=== PATIENT | male | born 1955 | race Caucasian/White ===

== ENCOUNTER 2020-06-17 15:38 | Emergency (ER) | payer BC, OTHER ==
[2020-06-17 22:16] LABS: Absolute Lymphocytes (CBC) 1.5 K/uL (0.7-4.9); Basophils % 0.5 % (0-1.3); Hematocrit 35.8 % (39.6-49.0); Lymphocytes % 16.7 % (15.3-44.8); MPV 9.6 fL (7.6-11.3); RBC Red Blood Cell Count 3.97 M/uL (4.33-5.43)
[2020-06-17 22:17] LABS: Protime INR 1.01
[2020-06-17] MEDS ORDERED: PANTOPRAZOLE 40 MG INJ ONE (22:22)
[2020-06-17] MEDS ORDERED: NA CHLORIDE 0.9% 250 ML ONE (22:22)
[2020-06-17] MEDS ORDERED: NA CHLORIDE 0.9% 1,000 ML ONE (22:22)
--- NOTE | 2020-06-17 22:29 | EDPHYS ---
Physician Documentation [facility] Name: Venkata Chan Age: 64 yrs Sex: Male : 1955 Arrival Date: 06/17/2020 Time: 15:41 Bed 23 Private MD: ED Physician Marcelino Bess HPI: 06/17 22:13 This 64 yrs old Male presents to ER via Ambulatory with complaints of gordo Black/Tarry Stools - Vomit. 22:13 The patient presents to the emergency department vomiting blood, a small amount, coffee gordo grounds in nature, with rectal bleeding, melena, with multiple such episodes. Onset: The symptoms/episode began/occurred 1 day(s) ago. Abdominal pain: none is appreciated. Modifying factors: The symptoms are alleviated by nothing, the symptoms are aggravated by nothing. Associated signs and symptoms: The patient has no apparent associated signs or symptoms. Severity of symptoms: At their worst the symptoms were mild. The patient has not experienced similar symptoms in the past. Historical: - Allergies: 15:59 No Known Allergies; ll1 - PMHx: 15:59 Hypertension; ll1 - PSHx: 15:59 shoulder sx; ll1 - Immunization history:: Flu vaccine is not up to date. - Social history:: Smoking status: Patient denies any tobacco usage or history of. ROS: 22:15 Constitutional: Negative for fever, chills, and weight loss, Eyes: Negative for injury, gordo pain, redness, and discharge, ENT: Negative for injury, pain, and discharge, Neck: Negative for injury, pain, and swelling, Cardiovascular: Negative for chest pain, palpitations, and edema, Respiratory: Negative for shortness of breath, cough, wheezing, and pleuritic chest pain, Back: Negative for injury and pain, : Negative for injury, bleeding, discharge, and swelling, MS/Extremity: Negative for injury and deformity, Skin: Negative for injury, rash, and discoloration, Neuro: Negative for headache, weakness, numbness, tingling, and seizure, Psych: Negative for depression, anxiety, suicide ideation, homicidal ideation, and hallucinations, Allergy/Immunology: Negative for hives, rash, and allergies, Endocrine: Negative for neck swelling, polydipsia, polyuria, polyphagia, and marked weight changes, Hematologic/Lymphatic: Negative for swollen nodes, abnormal bleeding, and unusual bruising. 22:15 Abdomen/GI: Positive for abdominal pain, black/tarry stool. Exam: 22:15 Constitutional: This is a well developed, well nourished patient who is awake, alert, gordo and in no acute distress. Head/Face: Normocephalic, atraumatic. Eyes: Pupils equal round and reactive to light, extra-ocular motions intact. Lids and lashes normal. Conjunctiva and sclera are non-icteric and not injected. Cornea within normal limits. Periorbital areas with no swelling, redness, or edema. ENT: Nares patent. No nasal discharge, no septal abnormalities noted. Tympanic membranes are normal and external auditory canals are clear. Oropharynx with no redness, swelling, or masses, exudates, or evidence of obstruction, uvula midline. Mucous membranes moist. Neck: Trachea midline, no thyromegaly or masses palpated, and no cervical lymphadenopathy. Supple, full range of motion without nuchal rigidity, or vertebral point tenderness. No Meningismus. Chest/axilla: Normal chest wall appearance and motion. Nontender with no deformity. No lesions are appreciated. Cardiovascular: Regular rate and rhythm with a normal S1 and S2. No gallops, murmurs, or rubs. Normal PMI, no JVD. No pulse deficits. Respiratory: Lungs have equal breath sounds bilaterally, clear to auscultation and percussion. No rales, rhonchi or wheezes noted. No increased work of breathing, no retractions or nasal flaring. Back: No spinal tenderness. No costovertebral tenderness. Full range of motion. Male : Normal genitalia with no discharge or lesions. Skin: Warm, dry with normal turgor. Normal color with no rashes, no lesions, and no evidence of cellulitis. MS/ Extremity: Pulses equal, no cyanosis. Neurovascular intact. Full, normal range of motion. Neuro: Awake and alert, GCS 15, oriented to person, place, time, and situation. Cranial nerves II-XII grossly intact. Motor strength 5/5 in all extremities. Sensory grossly intact. Cerebellar exam normal. Normal gait. Psych: Awake, alert, with orientation to person, place and time. Behavior, mood, and affect are within normal limits. 22:15 Abdomen/GI: Inspection: abdomen appears normal, Bowel sounds: normal, Palpation: abdomen is soft and non-tender, Rectal exam: Stool: guaiac positive, black, hemorrhoid(s), are not appreciated, mass, is not appreciated, swelling, is not appreciated, tenderness, is not appreciated, fecal impaction, is not appreciated, Liver: no appreciated palpable abnormalities, Hernia: not appreciated. 22:51 ECG was reviewed by the Attending Physician. [facility] Vital Signs: 15:59 BP 130 / 92; Pulse 98; Resp 18; Temp 98.3; Pulse Ox 98% ; Weight 101.6 kg; Height 5 ft. ll1 11 in. (180.34 cm); Pain 0/10; 22:00 BP 124 / 81; Pulse 87; Resp 18; Temp 98.2; Pulse Ox 98% ; Pain 0/10; jv1 23:00 BP 130 / 82; Pulse 87; Resp 18; Temp 98.1; Pulse Ox 100% ; Pain 0/10; jv1 06/18 00:30 BP 120 / 77; Pulse 82; Resp 18; Temp 98.0; Pulse Ox 100% ; Pain 0/10; jv1 01:14 BP 133 / 77; Pulse 77; Resp 18; Temp 98.0; Pulse Ox 98% ; Pain 0/10; jv1 02:22 BP 115 / 67; Pulse 87; Resp 18; Temp 98; Pulse Ox 100% ; Pain 0/10; jv1 03:24 BP 111 / 66; Pulse 80; Resp 18; Temp 98.1; Pulse Ox 100% ; Pain 0/10; jv1 06/17 15:59 Body Mass Index 31.24 (101.60 kg, 180.34 cm) [facility] MDM: 06/17 21:30 Patient medically screened. [facility] 22:50 Differential diagnosis: gastritis, diverticulitis. Data reviewed: vital signs, nurses [facility] notes, lab test result(s), EKG, radiologic studies. 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 Test interpretation: by ED physician or midlevel provider: ECG, plain radiologic studies. Counseling: I had a detailed discussion with the patient and/or guardian regarding: the historical points, exam findings, and any diagnostic results supporting the discharge/admit diagnosis, lab results, radiology results, the need to transfer to another facility, for higher level of care, [facility] does not immediately have the required specialist. 06/17 21:35 Order name: Basic Metabolic Panel; Complete Time: 22:38 [facility] 06/17 21:35 Order name: CBC with Diff; Complete Time: 22:38 [facility] 06/17 21:35 Order name: LFT's; Complete Time: 22:38 [facility] 06/17 21:35 Order name: Magnesium; Complete Time: 22:38 [facility] 06/17 21:35 Order name: NT PRO-BNP; Complete Time: 22:38 [facility] 06/17 21:35 Order name: PT-INR; Complete Time: 22:38 [facility] 06/17 21:35 Order name: Troponin (emerg Dept Use Only); Complete Time: 22:38 [facility] 06/17 21:35 Order name: XRAY Chest (1 view) [facility] 06/17 21:35 Order name: Lipase; Complete Time: 22:38 [facility] 06/17 21:35 Order name: Type And Screen [facility] 06/17 21:35 Order name: Urine Culture [facility] 06/18 01:06 Order name: SARS-COV-2 RT PCR [facility] 06/18 02:48 Order name: Urine Dipstick--Ancillary (enter results) 06/17 21:35 Order name: EKG; Complete Time: 21:36 [facility] 06/17 21:35 Order name: Cardiac monitoring; Complete Time: 22:31 [facility] 06/17 21:35 Order name: EKG - Nurse/Tech; Complete Time: 22:36 [facility] 06/17 21:35 Order name: IV Saline Lock; Complete Time: 22:31 [facility] 06/17 21:35 Order name: Labs collected and sent; Complete Time: 22:31 [facility] 06/17 21:35 Order name: O2 Per Protocol; Complete Time: 22:32 [facility] 06/17 21:35 Order name: O2 Sat Monitoring; Complete Time: 22:32 [facility] 06/17 21:35 Order name: Urine Dipstick-Ancillary (obtain specimen); Complete Time: 03:03 [facility] EC:51 Rate is 82 beats/min. Rhythm is regular. QRS [place] is Normal. FL interval is normal. QRS gordo interval is normal. QT interval is normal. No Q waves. T waves are Normal. No ST changes noted. Clinical impression: Normal ECG and No evidence of ischemia. Interpreted by me. Reviewed by me. Administered Medications: 22:13 Drug: NS 0.9% 1000 ml Route: IV; Rate: 125 ml/hr; Site: right antecubital; jv1 06/18 03:59 Follow up: Response: No adverse reaction; IV Status: Infusion continued upon transfer ea 06/17 22:14 Drug: ProTONIX 80 mg Route: IVP; Site: right antecubital; jv1 06/18 00:18 Follow up: Response: No adverse reaction jv1 06/17 22:15 Drug: ProTONIX 8 mg/hr Route: IV; Rate: 25 ml/hr; Site: right antecubital; jv1 06/18 04:36 Follow up: Response: No adverse reaction; IV Status: Infusion continued jv1 06/17 22:51 Drug: Thiamine 100 mg Route: IV; Rate: per protocol; Site: right antecubital; jv1 23:51 Follow up: Response: No adverse reaction j 06/18 00:19 Drug: NS 0.9% 1000 ml Route: IV; Rate: 1 bolus; Site: right antecubital; jv1 01:15 Follow up: Response: No adverse reaction; IV Status: Completed infusion jv1 03:59 Follow up: Response: No adverse reaction; IV Status: Completed infusion; IV Intake: ea 1000ml Disposition: 06/17/20 22:28 Transfer ordered to [facility]. Diagnosis are Gastrointestinal hemorrhage, unspecified - upper , Alcohol abuse. - Reason for transfer: Higher level of care. - Accepting physician is [facility]. - Condition is Fair. - Problem is new. - Symptoms have improved. Signatures: Dispatcher [employer] [facility] Marcelino Bess MD MD cha Attema, Lee, SERVICE DISPATCHER-C SERVICE DISPATCHER-Cla1 Sera Whipple, RN DIAZ ea Samantha Pinon RN RN jv1 Anthony Toscano RN RN ll1 Corrections: (The following items were deleted from the chart) 00:16 06/17 23:01 CORONAVIRUS+LAB.BRZ ordered. [facility] 06/18 03:59 06/17 22:28 06/17/2020 22:28 Transfer ordered to [facility]. ea Diagnosis is Gastrointestinal hemorrhage, unspecified - upper ; Alcohol abuse. Reason for transfer: Higher level of care. Accepting physician is juan antonio hurst. Condition is Fair. Problem is new. Symptoms have improved. gordo
--- NOTE | 2020-06-17 22:29 | ER ---
Nurse's Notes [facility] Name: Venkata Chan Age: 64 yrs Sex: Male : 1955 Arrival Date: 06/17/2020 Time: 15:41 Bed 23 Private MD: Diagnosis: Gastrointestinal hemorrhage, unspecified-upper ;Alcohol abuse Presentation: 06/17 15:59 Chief complaint: Patient states: Indigestion at 7pm last night. Awoke at 2am feeling ll1 sick. Vomited up black vomitus. States his first stool was two-toned with black. 2nd stool was a little loose, all black. No fever. Coronavirus screen: Client denies travel out of the [place] in the last 14 days. diarrhea, nausea, vomiting. Client presents with at least one sign or symptom that may indicate coronavirus-19. Standard/surgical mask placed on the client. Ebola Screen: Patient denies travel to an Ebola-affected area in the 21 days before illness onset. Initial Sepsis Screen: Does the patient meet any 2 criteria? HR > 90 bpm. No. Patient's initial sepsis screen is negative. Does the patient have a suspected source of infection? Yes: Acute abdominal pain. Risk Assessment: Do you want to hurt yourself or someone else? Patient reports no desire to harm self or others. Onset of symptoms. Onset of symptoms was June 16, 2020. 15:59 Method Of Arrival: Ambulatory 1 15:59 Acuity: FRANCISCO 3 ll1 Historical: - Allergies: 15:59 No Known Allergies; ll1 - PMHx: 15:59 Hypertension; ll1 - PSHx: 15:59 shoulder sx; ll1 - Immunization history:: Flu vaccine is not up to date. - Social history:: Smoking status: Patient denies any tobacco usage or history of. Screenin:50 Abuse screen: Denies threats or abuse. Nutritional screening: No deficits noted. jv1 Tuberculosis screening: No symptoms or risk factors identified. Fall Risk None identified. Assessment: 21:50 General: Appears in no apparent distress. comfortable, well groomed, well developed, jv1 Behavior is calm, cooperative, appropriate for age. Pain: Denies pain. Neuro: Level of Consciousness is awake, alert, obeys commands, Oriented to person, place, time, situation, Appropriate for age Onsite Case Manager are equal bilaterally Moves all extremities. Cardiovascular: Denies chest pain, Heart tones S1 S2 Capillary refill < 3 seconds Patient's skin is warm and dry. Pulses are all present. Rhythm is regular. Respiratory: Airway is patent Respiratory effort is even, unlabored, Respiratory pattern is regular, symmetrical, Breath sounds are clear bilaterally. GI: Abdomen is round non-distended, Bowel sounds present X 4 quads. Abd is soft and non tender X 4 quads. Reports black stools and vomiting of dark colored vomitus. : No signs and/or symptoms were reported regarding the genitourinary system. EENT: No signs and/or symptoms were reported regarding the EENT system. Derm: Skin is intact, is healthy with good turgor, Skin is pink, warm \T\ dry. Musculoskeletal: No signs and/or symptoms reported regarding the musculoskeletal system. Capillary refill < 3 seconds, Range of motion: intact in all extremities. 23:00 Reassessment: Patient appears in no apparent distress at this time. No changes from jv1 previously documented assessment. Patient and/or family updated on plan of care and expected duration. Pain level reassessed. Patient is alert, oriented x 3, equal unlabored respirations, skin warm/dry/pink. Patient denies pain at this time. 23:06 Reassessment: Dr. Bess in the room with pt. He explained about the need for jv1 transfer. 06/18 00:29 Reassessment: Patient appears in no apparent distress at this time. No changes from jv1 previously documented assessment. Patient and/or family updated on plan of care and expected duration. Pain level reassessed. Patient is alert, oriented x 3, equal unlabored respirations, skin warm/dry/pink. 01:14 Reassessment: Patient appears in no apparent distress at this time. No changes from jv1 previously documented assessment. Patient and/or family updated on plan of care and expected duration. Pain level reassessed. Patient is alert, oriented x 3, equal unlabored respirations, skin warm/dry/pink. Patient denies pain at this time. 02:22 Reassessment: Patient appears in no apparent distress at this time. No changes from jv1 previously documented assessment. Patient and/or family updated on plan of care and expected duration. Pain level reassessed. Patient is alert, oriented x 3, equal unlabored respirations, skin warm/dry/pink. called report to Farhana Christine RN. 03:24 Reassessment: Patient appears in no apparent distress at this time. No changes from jv1 previously documented assessment. Patient and/or family updated on plan of care and expected duration. Pain level reassessed. Patient is alert, oriented x 3, equal unlabored respirations, skin warm/dry/pink. Patient denies pain at this time. 03:57 Reassessment: Patient and/or family updated on plan of care and expected duration. Pain ea level reassessed. Patient is alert, oriented x 3, equal unlabored respirations, skin warm/dry/pink. [facility] ambulance at facility for transfer, pt tolerating well. 04:00 Reassessment: EMS came to take pt to [facility]. jv1 Vital Signs: 06/17 15:59 BP 130 / 92; Pulse 98; Resp 18; Temp 98.3; Pulse Ox 98% ; Weight 101.6 kg; Height 5 ft. ll1 11 in. (180.34 cm); Pain 0/10; 22:00 BP 124 / 81; Pulse 87; Resp 18; Temp 98.2; Pulse Ox 98% ; Pain 0/10; jv1 23:00 BP 130 / 82; Pulse 87; Resp 18; Temp 98.1; Pulse Ox 100% ; Pain 0/10; jv1 /07 00:30 BP 120 / 77; Pulse 82; Resp 18; Temp 98.0; Pulse Ox 100% ; Pain 0/10; jv1 01:14 BP 133 / 77; Pulse 77; Resp 18; Temp 98.0; Pulse Ox 98% ; Pain 0/10; jv1 02:22 BP 115 / 67; Pulse 87; Resp 18; Temp 98; Pulse Ox 100% ; Pain 0/10; jv1 03:24 BP 111 / 66; Pulse 80; Resp 18; Temp 98.1; Pulse Ox 100% ; Pain 0/10; jv1 06/17 15:59 Body Mass Index 31.24 (101.60 kg, 180.34 cm) ll1 ED Course: 06/17 15:41 Patient arrived in ED. ds1 15:58 Arm band placed on. ll1 16:02 Triage completed. ll1 21:30 Marcelino Bess MD is Attending Physician. gordo 21:50 Patient has correct armband on for positive identification. Bed in low position. Call jv1 light in reach. Side rails up X2. 21:50 Inserted saline lock: 20 gauge in right antecubital area, using aseptic technique. jv1 22:16 XRAY Chest (1 view) In Process Unspecified. EDMS 23:00 initiated a transfer with Ann Narvaez from [facility]. mw2 06/18 01:06 called Ann from [facility] to inform her of the covid result. She mw2 will call back with acceptance. 03:58 No provider procedures requiring assistance completed. Patient transferred, IV remains ea in place. Administered Medications: 06/17 22:13 Drug: NS 0.9% 1000 ml Route: IV; Rate: 125 ml/hr; Site: right antecubital; jv1 06/18 03:59 Follow up: Response: No adverse reaction; IV Status: Infusion continued upon transfer ea 06/17 22:14 Drug: ProTONIX 80 mg Route: IVP; Site: right antecubital; jv1 06/18 00:18 Follow up: Response: No adverse reaction jv1 06/17 22:15 Drug: ProTONIX 8 mg/hr Route: IV; Rate: 25 ml/hr; Site: right antecubital; jv1 06/18 04:36 Follow up: Response: No adverse reaction; IV Status: Infusion continued jv1 06/17 22:51 Drug: Thiamine 100 mg Route: IV; Rate: per protocol; Site: right antecubital; jv1 23:51 Follow up: Response: No adverse reaction jv1 06/18 00:19 Drug: NS 0.9% 1000 ml Route: IV; Rate: 1 bolus; Site: right antecubital; jv1 01:15 Follow up: Response: No adverse reaction; IV Status: Completed infusion jv1 03:59 Follow up: Response: No adverse reaction; IV Status: Completed infusion; IV Intake: ea 1000ml Intake: 03:59 IV: 1000ml; Total: 1000ml. ea Outcome: 06/17 22:28 ER care complete, transfer ordered by MD. caro 06/18 03:58 Transferred by ground EMS to [facility]. ea Condition: stable Instructed on the need for transfer. 03:59 Patient left the ED. ea Signatures: Dispatcher [employer] Marcelnio Monroy MD MD cha Sanford, Demi ds1 Sera Whipple RN RN ea Severino, Fred mw2 Samantha Pinon RN RN jv1 Anthony Toscano RN RN ll1
[2020-06-17 22:33] LABS: ALT/SGPT 34 U/L (12-78); AST/SGOT 20 U/L (15-37); Albumin 3.4 g/dL (3.4-5.0); Alkaline Phosphatase 70 U/L (45-117); BUN Blood Urea Nitrogen 36 mg/dL (7-18); Bicarbonate 27 mmol/L (21-32); Bilirubin Direct 0.1 mg/dL (0-0.2); Bilirubin Total 0.5 mg/dL (0.2-1.0); Glucose Level 97 mg/dL (74-106); Lipase 123 U/L (73-393); Magnesium 2.1 mg/dL (1.8-2.4); NT PRO-BNP 54 pg/mL (<125); Potassium 3.3 mmol/L (3.5-5.1); Protein, Total 6.3 g/dL (6.4-8.2); Sodium Level 141 mmol/L (136-145); Troponin (Emerg Dept Use Only) < 0.02 ng/mL (0.0-0.045)
[2020-06-17] MEDS ORDERED: THIAMINE 200 MG/2 ML INJ ONE (23:04)
[2020-06-18] MEDS ORDERED: NA CHLORIDE 0.9% 1,000 ML ONE (00:35)
[2020-06-18 03:33] LABS: Urine Blood NEGATIVE (NEG); Urine Glucose NEGATIVE (NEG); Urine Protein NEGATIVE (NEG); Urine pH 5.5 (5.0-7.0)
--- NOTE | 2020-06-18 08:39 | RAD REPORT ---
EXAM DESCRIPTION: RAD - Chest Single View - 06/17/2020 10:15 pm CLINICAL HISTORY: COUGH Chest pain. COMPARISON: CHEST PA AND LAT 2 VIEW dated 04/12/2013 FINDINGS: Portable technique limits examination quality. The lungs are grossly clear. The heart is normal in size. No displaced fractures. IMPRESSION: No acute intrathoracic process suspected.
== END 2020-06-18 03:59 | disposition short-term general hospital (02) ==
LOC: ER 15:38
DX: F10.10 Alcohol abuse, uncomplicated (principal); Z20.822 Contact with and (suspected) exposure to COVID-19; I10 Essential (primary) hypertension
CPT/HCPCS: 96365; 93005; 87088; 85025; 87086; 80048; 36415; 86900; 83735; 86850; 85610; 86901; 80076; 81003; 84484; 83690; 83880; 71045; 96375; 99285; 96366; U0003; J3411; C9113; J7050; J7030 ×2

== ENCOUNTER → 2023-08-03 | Emergency (ER) | payer MEDICAID ==
--- NOTE | 2023-08-03 08:02 | EDPHYS ---
Physician Documentation [facility] Name: Venkata Chan Age: 67 yrs Sex: Male : 1955 Arrival Date: 08/03/2023 Time: 07:37 Bed IW1 Private MD: ED Physician Rob Geronimo HPI: 08/03 07:57 This 67 yrs old Male presents to ER via Ambulatory with complaints of Sinus Congestion. rn 07:57 The patient or guardian reports cough, with no sputum. Onset: The symptoms/episode rn began/occurred 1 week(s) ago. Severity of symptoms: At their worst the symptoms were mild, in the emergency department the symptoms are unchanged. Modifying factors: The symptoms are alleviated by nothing, the symptoms are aggravated by nothing. Associated signs and symptoms: Pertinent positives: rhinorrhea, sore throat, Pertinent negatives: chest pain, fever. The patient has not experienced similar symptoms in the past. Patient reports sick for 1 week with sinus congestion/cough/sore throat. No fever. [place] like he was getting better but now feels like it settling in the chest. No chronic lung issues. Does not smoke. Denies shortness of breath. Historical: - Allergies: 07:49 pain meds; iw - Home Meds: 07:49 Xarelto oral [Active]; Metoprolol Tartrate Oral [Active]; iw - PMHx: 07:49 Hypertension; Atrial fibrillation; iw - PSHx: 07:49 None; iw - Immunization history:: Adult Immunizations. - Social history:: Smoking status: unknown. - Family history:: not pertinent. - Hospitalizations: : No recent hospitalization is reported. ROS: 07:57 Constitutional: Negative for fever, chills, and weight loss, ENT: Positive for sinus rn congestion and pressure Neck: Negative for injury, pain, and swelling, Cardiovascular: Negative for chest pain, palpitations, and edema, Respiratory: Positive for cough, negative for shortness of breath Abdomen/GI: Negative for abdominal pain, nausea, vomiting, diarrhea, and constipation, MS/Extremity: Negative for injury and deformity, Skin: Negative for injury, rash, and discoloration, Neuro: Negative for headache, weakness, numbness, tingling, and seizure, Exam: 07:57 Constitutional: This is a well developed, well nourished patient who is awake, alert, rn and in no acute distress. Neck: Trachea midline, no masses palpated. No Meningismus. Cardiovascular: Regular rate and rhythm. No pulse deficits. Respiratory: Speaking full sentences, unlabored. No increased work of breathing, no retractions or nasal flaring. Skin: Warm, dry Neuro: Awake and alert, GCS 15 Vital Signs: 07:47 BP 116 / 66; Pulse 66; Resp 16; Pulse Ox 96% on R/A; Weight 98.88 kg; Height 5 ft. 11 iw in. ; 07:47 Body Mass Index 30.40 (98.88 kg, 180.34 cm) iw MDM: 07:42 Patient medically screened. rn 08:01 Differential Diagnosis: Upper Respiratory Infection Sinusitis Pharyngitis Viral rn Syndrome. Data reviewed: vital signs, nurses notes, and as a result, I will discharge patient. Counseling: I had a detailed discussion with the patient and/or guardian regarding the historical points, exam findings, and any diagnostic results supporting the discharge/admit diagnosis, the need for outpatient follow up, to return to the emergency department if symptoms worsen or persist or if there are any questions or concerns that arise at home. Special discussion: I discussed with the patient/guardian in detail that at this point there is no indication for admission to the hospital. It is understood, however, that if the symptoms persist or worsen the patient needs to return immediately for re-evaluation. Administered Medications: No medications were administered Disposition Summary: 08/03/23 08:01 Discharge Ordered Notes: Location: Home rn Problem: new rn Symptoms: have improved rn Condition: Stable rn Diagnosis - Acute sinusitis, unspecified rn Followup: rn - With: Private Physician - When: As needed - Reason: Recheck today's complaints, Re-evaluation by your physician Discharge Instructions: - Discharge Summary Sheet rn - Sinusitis, Adult rn Forms: - Medication Reconciliation Form rn - Thank You Letter rn - Antibiotic furniture arranger - Prescription Opioid Use rn - Patient Portal Instructions rn - Leadership Thank You Letter rn Prescriptions: - Zithromax Z-James 250 mg Oral Tablet - take 1 tablet ORAL route as directed for 5 days Day 1 - take two (2) tablets rn one time. Day 2, 3, 4 , 5 take one (1) tablet once daily.; 6 tablet; Refills: 0, Product Selection Permitted Signatures: Katelyn Maria Rob Schaefer RN, MD MD rn
--- NOTE | 2023-08-03 08:02 | ER ---
Nurse's Notes [facility] Name: Venkata Chan Age: 67 yrs Sex: Male : 1955 Arrival Date: 08/03/2023 Time: 07:37 Bed IW1 Private MD: Diagnosis: Acute sinusitis, unspecified Presentation: 08/03 07:47 Chief complaint: Patient states: sinuses are bleeding, has a lot of sinus pressure and iw congestion, started last week. Coronavirus screen: At this time, the client does not indicate any symptoms associated with coronavirus-19. Ebola Screen: Patient negative for fever greater than or equal to 101.5 degrees Fahrenheit, and additional compatible Ebola Virus Disease symptoms Patient denies exposure to infectious person. Patient denies travel to an Ebola-affected area in the 21 days before illness onset. No symptoms or risks identified at this time. Initial Sepsis Screen: Does the patient meet any 2 criteria? No. Patient's initial sepsis screen is negative. Does the patient have a suspected source of infection? No. Patient's initial sepsis screen is negative. Risk Assessment: Do you want to hurt yourself or someone else? Patient reports no desire to harm self or others. Onset of symptoms was July 27, 2023. 07:47 Method Of Arrival: Ambulatory iw 07:47 Acuity: FRANCISCO 4 iw Historical: - Allergies: 07:49 pain meds; iw - Home Meds: 07:49 Xarelto oral [Active]; Metoprolol Tartrate Oral [Active]; iw - PMHx: 07:49 Hypertension; Atrial fibrillation; iw - PSHx: 07:49 None; iw - Immunization history:: Adult Immunizations. - Social history:: Smoking status: unknown. - Family history:: not pertinent. - Hospitalizations: : No recent hospitalization is reported. Screenin:54 [facility] ED Fall Risk Assessment (Adult) Score/Fall Risk Level. Abuse screen: Denies iw threats or abuse. Denies injuries from another. Nutritional screening: No deficits noted. Tuberculosis screening: No symptoms or risk factors identified. Assessment: 07:53 General: Appears in no apparent distress. Behavior is calm, cooperative. Pain: iw Complains of pain in head. Neuro: Level of Consciousness is awake, alert, obeys commands, Oriented to person, place, time, situation, Moves all extremities. Full function. Cardiovascular: Patient's skin is warm and dry. Respiratory: Respiratory effort is even, unlabored, Respiratory pattern is regular, symmetrical. GI: Abdomen is flat, non-distended. Derm: Skin is intact, is healthy with good turgor. Musculoskeletal: Range of motion: intact in all extremities. Vital Signs: 07:47 BP 116 / 66; Pulse 66; Resp 16; Pulse Ox 96% on R/A; Weight 98.88 kg; Height 5 ft. 11 iw in. ; 07:47 Body Mass Index 30.40 (98.88 kg, 180.34 cm) iw ED Course: 07:41 Patient arrived in ED. mg5 07:42 Rob Geronimo MD is Attending Physician. rn 07:49 Triage completed. iw 07:53 Katelyn Maria RN is Primary Nurse. iw 07:54 Patient has correct armband on for positive identification. Provided Education on: . iw 07:54 No provider procedures requiring assistance completed. Patient did not have IV access iw during this emergency room visit. 08:09 Arm band placed on. iw Administered Medications: No medications were administered Medication: 07:54 VIS not applicable for this client. iw Outcome: 08:01 Discharge ordered by . rn 08:08 Discharged to home ambulatory, iw 08:08 Condition: good 08:08 Discharge instructions given to patient, Instructed on discharge instructions, follow up and referral plans. medication usage, Demonstrated understanding of instructions, follow-up care, medications, Prescriptions given X 1, 08:09 Patient left the ED. iw Signatures: Katelyn Maria RN RN Rob Geronimo MD MD rn [place], [place] mg5
[2023-08-03 08:32] VITALS: BP 116/66; O2SAT 96
== END ==
LOC: ER 07:37
DX: J01.90 Acute sinusitis, unspecified (principal); I10 Essential (primary) hypertension; I48.91 Unspecified atrial fibrillation; Z79.01 Long term (current) use of anticoagulants
CPT/HCPCS: 99283

== ENCOUNTER 2025-01-30 08:49 | Emergency (ER) | payer MEDICAID ==
[2025-01-30] MEDS ORDERED: LIDOCAINE 1% MPF 5 ML VIAL ONE (09:05)
[2025-01-30] MEDS ORDERED: TDAP (DIPHTH,PERTUSS(ACELL),TET VAC) 0.5 ML VIAL IMVAC ONE (09:05)
--- NOTE | 2025-01-30 09:16 | EDPHYS ---
Physician Documentation [facility] Name: Venkata Chan Age: 69 yrs Sex: Male : 1955 Arrival Date: 01/30/2025 Time: 08:49 Bed 19 Private MD: ED Physician Marcelino Bess HPI: 01/30 09:15 This 69 yrs old Male presents to ER via Ambulatory with complaints of Laceration To sb4 Hand. 09:15 The patient has a laceration related to:. Accidentally sliced his left hand in between sb4 his index and middle finger using a mud grinder creating a small laceration. Unsure if his tetanus is up-to-date. Bleeding is controlled. Has no other complaints at this time. Historical: - Allergies: 09:13 No Known Allergies; ar8 - Home Meds: 09:13 Metoprolol Tartrate Oral [Active]; ar8 - PMHx: 09:13 Atrial fibrillation; Hypertension; ar8 - PSHx: 09:13 None; ar8 - Immunization history:: Adult Immunizations up to date, Last tetanus immunization: unknown. - Infectious Disease History:: Denies. - Social history:: Smoking status: Patient denies any tobacco usage or history of. ROS: 09:15 Constitutional: Negative for fever, chills, and weight loss, sb4 09:15 Skin: Negative for laceration(s), 09:15 All other systems are negative, Exam: 09:15 Constitutional: This is a well developed, well nourished patient who is awake, alert, sb4 and in no acute distress. Head/Face: Normocephalic, atraumatic. Eyes: Extra-ocular motions intact. Periorbital areas with no swelling, redness, or edema. ENT: Mucous membranes moist. Respiratory: No increased work of breathing, no retractions or nasal flaring. 09:15 Skin: injury, laceration(s), the wound is approximately 3 cm(s), with a depth of .5 cm(s), of the dorsum of left hand, that can be described as clean, contaminated, no foreign body, linear, with mild bleeding, Vital Signs: 09:00 BP 110 / 79; Pulse 67; Resp 16; Temp 98.7(O); Pulse Ox 96% on R/A; Weight 97.52 kg; ar8 Height 5 ft. 11 in. ; Pain 0/10; 09:15 BP 110 / 71; Pulse 69; Resp 18; Pulse Ox 95% on R/A; Pain 0/10; ar8 09:00 Body Mass Index 29.99 (97.52 kg, 180.34 cm) ar8 09:00 Pain Scale: Adult ar8 09:15 Pain Scale: Adult ar8 Laceration: 09:15 Wound Repair of 3cm ( 1.2in ) subcutaneous laceration to dorsum of left hand. Linear sb4 shaped.. Distal neuro/vascular/tendon intact. Anesthesia: Local anesthetic administered with 4 mls of 1% lidocaine. Wound prep: Simple cleansing with hibiclenz by me, Wound irrigation with saline by me, Wound explored moderately, Copious irrigation. Skin closed with 3 5-0 Prolene using simple sutures and sterile technique. Dressed with non-adherent dressing. Patient tolerated well. MDM: 08:52 Medical Screening Exam initiated sb4 09:17 Differential diagnosis: superficial laceration, tendon injury, vascular injury. Data sb4 reviewed: vital signs, nurses notes, and as a result, I will discharge patient. Test considered but Not performed: X-ray: not indicated, superficial laceration, not suspicious for retained foreign body. Care significantly affected by the following chronic conditions: Hypertension. Counseling: I had a detailed discussion with the patient and/or guardian regarding the historical points, exam findings, and any diagnostic results supporting the discharge/admit diagnosis, the need for outpatient follow up, for suture removal in 1 week, to return to the emergency department if symptoms worsen or persist or if there are any questions or concerns that arise at home. Administered Medications: 09:18 Drug: Lidocaine Infiltration (1 %) 5 mg Infiltration once {Note: Administered by ERP ar8 during laceration repair.} Route: Infiltration; :25 Follow up: Response: No adverse reaction ar8 09:25 Drug: Boostrix Tdap IM 0.5 ml IM once; as a single dose Route: IM; Site: left deltoid; ar8 09:29 Follow up: Response: No adverse reaction; Medication administered at discharge. ar8 Disposition: 13:49 Co-signature as Attending Physician, Marcelino Bess MD I agree with the assessment and gordo plan of care. Disposition Summary: 01/30/25 09:15 Discharge Ordered Notes: Location: Home sb4 Problem: new sb4 Symptoms: have improved sb4 Condition: Stable sb4 Diagnosis - Laceration without foreign body of left hand, initial encounter sb4 Followup: sb4 - With: Private Physician - When: 1 week - Reason: Staple/Suture removal Discharge Instructions: - Discharge Summary Sheet sb4 - Laceration Care, Adult sb4 Forms: - Patient Portal Instructions sb4 - Leadership Thank You Letter sb4 Signatures: Marcelino Bess MD MD cha Brown, Sophia, PA-C PASandip sb4 Kai Oliveros RN RN ar8
--- NOTE | 2025-01-30 09:16 | ER ---
Nurse's Notes [facility] Name: Venkata Chan Age: 69 yrs Sex: Male : 1955 Arrival Date: 01/30/2025 Time: 08:49 Bed 19 Private MD: Diagnosis: Laceration without foreign body of left hand, initial encounter Presentation: 01/30 09:00 Chief complaint: Patient states: C/O laceration to left hand between knuckle of pointer ar8 and middle finger. Coronavirus screen: At this time, the client does not indicate any symptoms associated with coronavirus-19. 09:00 Method Of Arrival: Ambulatory ar8 09:00 Ebola Screen: No symptoms or risks identified at this time. Complicating Factors: There ar8 are no complicating factors for this patient. Initial Sepsis Screen: Does the patient meet any 2 criteria? No. Patient's initial sepsis screen is negative. Does the patient have a suspected source of infection? No. Patient's initial sepsis screen is negative. Risk Assessment: Do you want to hurt yourself or someone else? Patient reports no desire to harm self or others. Onset of symptoms was January 30, 2025 at 08:00. 09:00 Acuity: FRANCISCO 4 ar8 Triage Assessment: 09:13 General: Appears in no apparent distress. Behavior is calm, cooperative. Pain: Denies ar8 pain. Neuro: No deficits noted. Level of Consciousness is awake, alert, obeys commands, Oriented to person, place, time, situation. Cardiovascular: No deficits noted. Respiratory: No deficits noted. Airway is patent Respiratory effort is even, unlabored, Respiratory pattern is regular, symmetrical. Injury Description: Laceration sustained to between dorsal aspect of proximal phalanx of left index finger and dorsal aspect of proximal phalanx of left middle finger is clean, 0.5 to 2.5 cm long, not bleeding, was sustained 30-60 minutes ago. is bleeding no active bleeding noted. Historical: - Allergies: 09:13 No Known Allergies; ar8 - Home Meds: 09:13 Metoprolol Tartrate Oral [Active]; ar8 - PMHx: 09:13 Atrial fibrillation; Hypertension; ar8 - PSHx: 09:13 None; ar8 - Immunization history:: Adult Immunizations up to date, Last tetanus immunization: unknown. - Infectious Disease History:: Denies. - Social history:: Smoking status: Patient denies any tobacco usage or history of. Screenin:16 [facility] ED Fall Risk Assessment (Adult) History of falling in the last 3 months, ar8 including since admission No falls in past 3 months (0 pts) Confusion or Disorientation No (0 pts) Intoxicated or Sedated No (0 pts) Impaired Gait No (0 pts) Mobility Assist Device Used No (0 pt) Altered Elimination No (0 pt) Score/Fall Risk Level 0 - 2 = Low Risk. Abuse screen: Denies threats or abuse. Nutritional screening: No deficits noted. Tuberculosis screening: No symptoms or risk factors identified. Assessment: 09:05 Musculoskeletal: No deficits noted. ar8 09:16 Reassessment: See triage assessment. ar8 Vital Signs: 09:00 BP 110 / 79; Pulse 67; Resp 16; Temp 98.7(O); Pulse Ox 96% on R/A; Weight 97.52 kg; ar8 Height 5 ft. 11 in. ; Pain 0/10; 09:15 BP 110 / 71; Pulse 69; Resp 18; Pulse Ox 95% on R/A; Pain 0/10; ar8 09:00 Body Mass Index 29.99 (97.52 kg, 180.34 cm) ar8 09:00 Pain Scale: Adult ar8 09:15 Pain Scale: Adult ar8 ED Course: 08:51 Patient arrived in ED. mr 08:52 Ashia Cardoza PA-C is PHCP. sb4 08:52 Marcelino Bess MD is Attending Physician. sb4 09:03 Kai Oliveros RN is Primary Nurse. ar8 09:12 Triage completed. ar8 09:13 Arm band placed on right wrist. ar8 09:16 Bed in low position. Call light in reach. Provided Education on: plan of care. ar8 09:16 No provider procedures requiring assistance completed. Patient did not have IV access ar8 during this emergency room visit. 09:25 Wound care: to laceration located on left hand was dressed with band aid, per patient ar8 request. Administered Medications: 09:18 Drug: Lidocaine Infiltration (1 %) 5 mg Infiltration once {Note: Administered by ERP ar8 during laceration repair.} Route: Infiltration; :25 Follow up: Response: No adverse reaction ar8 09:25 Drug: Boostrix Tdap IM 0.5 ml IM once; as a single dose Route: IM; Site: left deltoid; ar8 09:29 Follow up: Response: No adverse reaction; Medication administered at discharge. ar8 Medication: 09:16 Vaccine Information Statement (VIS) provided today. Questions and/or concerns ar8 addressed. VIS edition date: January 15, 2021. Outcome: 09:15 Discharge ordered by MD. [place] :29 Discharged to home ambulatory, ar8 :29 Condition: stable 09:29 Discharge instructions given to patient, Instructed on discharge instructions, follow up and referral plans. wound care, Demonstrated understanding of instructions, follow-up care, 09:31 Patient left the ED. ar8 Signatures: Tiera Diaz Reg Reg mr Brown, Sophia, PA-C PA-C sb4 Kai Oliveros, RN RN ar8
[2025-01-30 10:01] VITALS: TEMP 98.7
[2025-01-30 10:02] VITALS: BP 110/71; O2SAT 95
== END 2025-01-30 09:31 | disposition home or self-care (01) ==
LOC: ER 08:49
DX: S61.412A Laceration without foreign body of left hand, initial encounter (principal); W29.8XXA Contact with other powered hand tools and household machinery, initial encounter; I10 Essential (primary) hypertension; I48.91 Unspecified atrial fibrillation; Z23 Encounter for immunization
CPT/HCPCS: 90715; 96372; 99284; 12042; J2003